=== PATIENT | male | born 1985 | race Hispanic/Latino ===

== ENCOUNTER 2018-01-05 17:57 | Emergency (ER) | payer MEDICAID, OTHER ==
[2018-01-05 18:35] VITALS: BMI 32.5
[2018-01-05 18:36] VITALS: RESP 18
--- NOTE | 2018-01-05 19:46 | ED PDOC ---
Arrival/HPI - General Chief Complaint: Lower Extremity Problem/Injury Time Seen by Provider: 01/05/18 18:51 Historian: Patient - History of Present Illness Narrative History of Present Illness (Text): 01/06/18 03:19 32 y/o male with no PMH presents to ED c/o right knee pain x 4 days. On , pt was kneeling on basement floor doing work, when he put his right knee on some debris, causing an abrasion. Over the next few days the area became red and tender, developing a blister. The pt popped the fluctuant area twice, draining small amounts of pus. Pt has not taken anything for pain. Denies fevers, chills, SOB, chest pain, hip pain, ankle pain, numbness, paresthesias. Past Medical History - Provider Review Nursing Documentation Reviewed: Yes - Infectious Disease Hx of Infectious Diseases: None - Tetanus Immunization Tetanus Immunization: Never Received Tetanus Vaccine - Cardiac Hx Cardiac Disorders: No - Pulmonary Hx Respiratory Disorders: No - Neurological Hx Neurological Disorder: No - HEENT Hx HEENT Disorder: No - Renal Hx Renal Disorder: No - Endocrine/Metabolic Hx Endocrine Disorders: No - Hematological/Oncological Hx Blood Disorders: No - Integumentary Hx Dermatological Disorder: No - Musculoskeletal/Rheumatological Hx Musculoskeletal Disorders: No - Gastrointestinal Hx Gastrointestinal Disorders: No - Genitourinary/Gynecological Hx Genitourinary Disorders: No - Psychiatric Hx Psychophysiologic Disorder: No Hx Substance Use: No - Surgical History 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 absent: Fevers Eyes: Normal. absent: Vision Changes ENT: Normal Respiratory: Normal Cardiovascular: Normal Gastrointestinal: Normal Genitourinary Male: Normal Musculoskeletal: Arthralgias (right knee). absent: Back Pain, Neck Pain, Joint Swelling, Myalgias Skin: Abscess (right knee), Cellulitis (right knee). absent: Rash Neurological: Normal. absent: Headache, Dizziness Endocrine: Normal Hemo/Lymphatic: Normal Physical Exam Vital Signs Reviewed: Yes Vital Signs Temp Pulse Resp BP Pulse Ox 01/05/18 18:35 99.1 F 109 H 18 169/109 H 97 Temperature: Afebrile Blood Pressure: Normal Pulse: Regular Respiratory Rate: Normal Appearance: Positive for: Well-Appearing, Non-Toxic, Comfortable Pain Distress: None Mental Status: Positive for: Alert and Oriented X 3 - Systems Exam Head: Present: Atraumatic Pupils: Present: PERRL Extroacular Muscles: Present: EOMI Conjunctiva: Present: Normal Mouth: Present: Moist Mucous Membranes Neck: Present: Normal Range of Motion. No: MIDLINE TENDERNESS, Paraspinal Tenderness Respiratory/Chest: Present: Clear to Auscultation, Good Air Exchange. No: Respiratory Distress, Accessory Muscle Use Cardiovascular: Present: Regular Rate and Rhythm, Normal S1, S2. No: Murmurs Upper Extremity: Present: Normal Inspection, Normal ROM, NORMAL PULSES. No: Cyanosis, Edema, Tenderness, Swelling, Erythema Lower Extremity: Present: NORMAL PULSES, Normal ROM, Tenderness (right knee inferior to patella), Erythema (right knee inferior to patella), Temperature Abnormalties (warmth to right knee inferior to patella), Neurovascularly Intact, Capillary Refill < 2 s. No: Normal Inspection (1cm x 1cm wound on right knee inferior to patella, open and scabbed with surrounding induration and cellulitis 2cm x 2cm), CALF TENDERNESS, Cyanosis, Deformity, Other (fluctuance) Neurological: Present: GCS=15, CN II-XII Intact, Speech Normal Medical Decision Making ED Course and Treatment: 01/06/18 03:17 Initial Plan --Right knee xray to r/o fracture or FB --Pain control Xray read by me as negative for fracture or FB Pt refused pain medication Discussed importance of BP followup, pt understands Impression: Cellulitis Plan: --Keflex --Followup with PMD for wound check and BP check --Return to ED if worse - RAD Interpretation Radiology Orders: 01/05/18 18:51 KNEE W PATELLA RIGHT 3 VIEW [RAD] Stat Case Supervisor: ED Physician Disposition/Present on Arrival - Present on Arrival Any Indicators Present on Arrival: No History of DVT/PE: No History of Uncontrolled Diabetes: No Urinary Catheter: No History of Decub. Ulcer: No History Surgical Site Infection Following: None - Disposition Have Diagnosis and Disposition been Completed?: Yes Diagnosis: Cellulitis Disposition: HOME/ ROUTINE Disposition Time: 19:30 Patient Plan: Discharge Condition: STABLE Discharge Instructions (ExitCare): Cellulitis (Skin Infection), Adult (DC), Cellulitis (ED) Additional Instructions: Keep wound clean, dry, and covered Take Keflex every 8 hours x 7 days Followup with primary within 2 days for wound check and BP check Return to ED if symptoms worsen Prescriptions: Cephalexin [Keflex] 500 mg PO TID 7 Days #21 capsule Referrals: Jacinta Marrufo MD [Medical Doctor] - Follow up with primary Forms: [facility] (Tu[place]uan), WORK NOTE
[2018-01-05 20:15] VITALS: BP 154/78; PULSE 82; TEMP 98.9; O2SAT 99
--- NOTE | 2018-01-06 09:56 | RAD ---
Date of service: 01/05/2018 PROCEDURE: Right Knee Radiographs. HISTORY: r/o FB COMPARISON: None. FINDINGS: BONES: Bone alignment and mineralization are normal. There is no acute displaced fracture or bone destruction. JOINTS: Normal. No osteoarthritis. JOINT EFFUSION: None. OTHER FINDINGS: No radiopaque foreign body. IMPRESSION: No acute fracture or dislocation.
== END 2018-01-05 20:05 | disposition home or self-care (01) ==
LOC: ED 17:57
DX: L03.115 Cellulitis of right lower limb (principal)